=== PATIENT | female | born 1960 | race Caucasian/White ===

== ENCOUNTER 2016-11-23 08:05 | Emergency (ER) | payer MEDICAID, OTHER ==
[2016-11-23 08:37] VITALS: BP 101/67; PULSE 79; RESP 18; TEMP 98.1; O2SAT 97
--- NOTE | 2016-11-23 08:54 | DX ---
Right wrist 4 views History: pain after falling on ice. Findings: First carpometacarpal joint shows moderate loss of thickness, with small osteophytes along the margins. Radiocarpal and distal radioulnar joints show mild loss of thickness. No fracture or sub luxation. No erosions and no periosteal reaction. Impression: Mild osteoarthritis; no fracture.
--- NOTE | 2016-11-23 09:01 | UCPHY ---
H & P Time Seen by Provider: 11/23/16 08:15 Patient Type: New HPI/ROS: 56-year-old female presents complaining of right wrist pain after slipping and landing on an outstretched hand. She denies swelling or change in color. She denies numbness or tingling. Review of systems General no fever no chills no weakness HEENT no eye pain no eye discharge. No eye redness, no sore throat Respiratory no cough, no shortness of breath Cardiac no chest pain, no peripheral edema GI no abdominal pain, no diarrhea, no constipation, no nausea, no vomiting no flank pain, no hematuria, no dysuria Musculoskeletal no myalgias, positive joint pain Heme no easy bruising, no easy bleeding Endo no polyuria, no polydipsia Skin no rashes, no pruritus Neuro no syncope, no dizziness, no headaches Psych is no suicidal ideation, no homicidal ideation Past Medical/Surgical History: Osteoporosis Social History: Denies alcohol or drug use Smoking Status: Never smoked Physical Exam: Alert and oriented in no acute distress nontoxic appearance, afebrile Atraumatic normocephalic Neck no JVD Lungs clear to auscultation, no respiratory distress Heart regular rate and rhythm Extremities no cyanosis clubbing edema Right wrist no swelling no ecchymosis, full range of motion, diffuse mild tenderness, good capillary refill in digits full range of motion of all fingers able to make a fist good grasp full range of motion of elbow and shoulder Constitutional: Initial Vital Signs Temperature (C) 36.7 C 11/23/16 08:34 Heart Rate 79 11/23/16 08:34 Respiratory Rate 18 11/23/16 08:34 Blood Pressure 101/67 11/23/16 08:34 O2 Sat (%) 97 11/23/16 08:34 O2 Delivery Mode Room Air Allergies/Adverse Reactions: No Known Allergies Allergy (Unverified 11/23/16 08:33) Home Medications: Medication Instructions Recorded Multi-Vitamin Daily 11/23/16 Medical Decision Making ED Course/Re-evaluation: Patient seen and evaluated for right wrist pain after a fall X-ray negative Impression Wrist sprain, right Plan Offered patient a Velcro wrist splint for comfort Patient would prefer to have no splint at this time Advised rest, ice, compression, elevation Follow up with primary care as needed Departure - Departure Disposition: Home, Routine, Self-Care Clinical Impression: Right wrist sprain Condition: Good Instructions: Wrist Sprain (ED) Referrals: Genna TRAVIS [Primary Care Provider] - As per Instructions - PQRS PQRS Measurement: na
== END 2016-11-23 09:10 | disposition home or self-care (01) ==
LOC: CED 08:05
DX: S63.501A Unspecified sprain of right wrist, initial encounter (principal); W01.0XXA Fall on same level from slipping, tripping and stumbling without subsequent striking against object, initial encounter; M81.0 Age-related osteoporosis without current pathological fracture
CPT/HCPCS: 73110-PO; 99203-PO; G0463-PO